=== PATIENT | female | born 1960 | race Caucasian/White ===

== ENCOUNTER 2019-09-25 10:09 | Outpatient (CLI) | payer BC ==
--- NOTE | 2019-09-25 11:18 | RAD ---
EXAM: CHEST PA AND LATERAL: HISTORY: Status post Mediport placement. COMPARISON: 09/24/2019. FINDINGS: Stable left-sided Mediport catheter. Heart: Stable upper normal cardiac silhouette. Aorta: Unremarkable. Pulmonary vessels: Normal. Costophrenic angles: Costophrenic angles are clear. Lungs: No consolidation or masses. Pneumothorax: Moderate left-sided pneumothorax at approximately to the posterior fifth rib. Osseous structures: No osseous abnormalities. IMPRESSION: Moderate left sided pneumothorax, to the posterior left fifth rib. Degree of pneumothorax has slightl y progressed. Results of study conveyed to Dr. Powell via [facility] to 09/25/2019 at 11:15 AM. CODE CR Transcribed Date/Time: 09/25/2019 11:31 AM
== END 2019-09-25 10:10 | disposition home or self-care (01) ==
LOC: MADRAD 10:09
PROVIDERS: ATTEND Specialist
DX: S27.309A Unspecified injury of lung, unspecified, initial encounter (principal); J93.9 Pneumothorax, unspecified
CPT/HCPCS: 71046

== ENCOUNTER 2019-11-19 13:39 | Outpatient (CLI) | payer BC ==
--- NOTE | 2019-11-19 14:17 | RAD ---
PA AND LATERAL VIEWS CHEST: Date: 11/19/2019 HISTORY: Shortness of breath. Breast cancer. FINDINGS: Comparison made with exam of 09/25/2019. Left-sided Port-A-Cath remains in place. Heart size normal. Aorta is tortuous. Lungs are well expande d without lobar consolidation, pneumothoraces, or pleural effusions. There are degenerative changes i n the spine. IMPRESSION: No radiographic evidence of acute cardiopulmonary process. POS: [facility]
== END 2019-11-19 13:40 | disposition home or self-care (01) ==
LOC: MADRAD 13:39
PROVIDERS: ATTEND Internal Medicine Hematology & Oncology
DX: C50.811 Malignant neoplasm of overlapping sites of right female breast (principal)
CPT/HCPCS: 71046